=== PATIENT | female | born 1930 ===

== ENCOUNTER 2016-06-30 11:28 | Inpatient (IN) | payer MEDICARE ==
[~2016-06-30] VITALS: Ht 160 cm; Wt 50.9 kg
--- NOTE | ~2016-06-30 | CON ---
PATIENT'S NAME: DIXIE GRIFFIN [facility] AGE: 85 Y [address] ROOM: [place] [address] LOCATION: GICU ADMIT DATE: 06/30/2016 Consultation DISCHARGE DATE: FAMILY PHYSICIAN: PHYSICIAN, UNKNOWN ATTENDING PHYSICIAN: Julien Dupree DATE OF CONSULTATION: 06/30/2016 CHIEF COMPLAINT: Right hydronephrosis and sepsis. HISTORY OF PRESENT ILLNESS: The patient is an 85-year-old female, who was transferred from the outside hospital for further evaluation of acute mental status change, respiratory failure, sepsis, and renal failure. She underwent a CT scan of her abdomen and pelvis earlier this morning with findings including a solitary right kidney with some associated [id number] hydronephrosis and some hydroureter of her proximal and mid ureter. There is no obvious obstructing calculi noted on the CT scan. At that time, Urology was consulted, she was already intubated, and on multiple pressors for hypotension. Her white blood cell count was 5.9 and serum creatinine level was 3.3 here in the ICU. This serum creatinine level was slightly down from 3.8 earlier this morning. Her white blood cell count earlier this morning was 11.1. Her urinalysis earlier this morning was consistent with small bacteria and large leukocyte esterase, but negative nitrites. The family was not aware of her having any history of solitary right kidney. She has no previous history of nephrolithiasis. Prior to the patient becoming septic, she was complaining of some abdominal pain for the last 2 days. The pain apparently is described as a sharp crampy pain. She had apparently denied any fevers or chills. PAST MEDICAL HISTORY: 1. Hypertension. 2. Anxiety. 3. Osteoporosis. PAST SURGICAL HISTORY: 1. Femur surgery. 2. Hernia surgery. 3. Left elbow surgery. 4. Left foot surgery. 5. Tonsillectomy. ALLERGIES: NO KNOWN DRUG ALLERGIES. PATIENT'S NAME: DIXIE GRIFFIN [facility] AGE: 85 Y [address] ROOM: [place] [address] LOCATION: GICU ADMIT DATE: 06/30/2016 Consultation DISCHARGE DATE: FAMILY PHYSICIAN: PHYSICIAN, UNKNOWN ATTENDING PHYSICIAN: Julien Dupree MEDICATIONS: Please see hospitalization medication reconciliation. FAMILY HISTORY: No reported family history of any genitourinary abnormalities. SOCIAL HISTORY: The patient is and lives in [place], [place]. She has no reported history of alcohol, smoking, or drug use. REVIEW OF SYSTEMS: A full 10+ point review of systems was performed with pertinent positive and negative findings included in the history of present illness. All other systems were reviewed and are otherwise negative. PHYSICAL EXAMINATION: VITAL SIGNS: She does have a systolic in the 130s and diastolic in the 40s on pressor support, she is tachycardic with a heart rate in the 120s, respiratory rate at 32, and oxygen saturation is 97% on 40% FiO2. CONSTITUTIONAL: The patient is intubated. HEENT: Extraocular muscles intact. Mucous membranes somewhat dry. No drainage per ears or nose. ABDOMEN: Soft. Nontender. RESPIRATORY: No apparent respiratory distress on ventilator support. MUSCULOSKELETAL: Moves all extremities. NEUROLOGIC: No focal deficits noted. HEMATOLOGIC: No active sites of bruising or bleeding. IMAGING: I personally reviewed her images consistent with findings noted above in the history of present illness. IMPRESSION: 1. Solitary right kidney. 2. Right hydronephrosis. 3. Sepsis. 4. Renal insufficiency. PLAN: I had a long discussion today with the family regarding my findings and given her solitary right kidney in the setting of renal insufficiency and some hydronephrosis, I recommended urgent cystoscopy with placement of indwelling right ureteral stent. There does not appear to be any obvious source of the obstruction, but regardless given her state and overall clinical picture, I do feel it is indicated take her back for stent placement. If we were able to PATIENT'S NAME: DIXIE GRIFFIN [facility] AGE: 85 Y [address] ROOM: [address] [address] LOCATION: [facility] ADMIT DATE: 06/30/2016 Consultation DISCHARGE DATE: FAMILY PHYSICIAN: PHYSICIAN, UNKNOWN ATTENDING PHYSICIAN: Julien Dupree get her through this current infection and get her stable, then at a later date on an outpatient basis we can take a closer look at the ureter including possible retrograde ureteral pyelogram and ureteroscopy to evaluate if there is any obvious intrinsic or extrinsic blockage going on here. The family's questions and concerns were addressed and they did consent for the patient, who is currently in a critical state. They have no further questions at this time. MD PRESTON CASILLAS/brandi /[id number] d: 06/30/16 2348 t: 07/01/16 1550, CONSULTATION REPORT
--- NOTE | ~2016-06-30 | CON ---
PATIENT'S NAME: DIXIE GRIFFIN [facility] AGE: 85 Y [address] ROOM: [id number] [place], [place] [address] LOCATION: GICU ADMIT DATE: 06/30/2016 Consultation DISCHARGE DATE: 06/30/2016 FAMILY PHYSICIAN: PHYSICIAN, UNKNOWN ATTENDING PHYSICIAN: Julien Dupree DATE OF CONSULTATION: 06/30/2016 REFERRING PHYSICIAN: Julien Dupree MD REASON FOR CONSULTATION: BOWEN. HISTORY OF PRESENT ILLNESS: An 85-year-old lady with history of hypertension, anxiety, osteoporosis, and at least 2 prior episodes of BOWEN with abdominal pain, nausea, vomiting, poor p.o. intake over the last month, which got resolved after aggressive IV hydration. Presented to [facility] today with altered mental status, respiratory failure, and shock. The patient was intubated on scene and started on pressors. Meanwhile, a CT scan of the abdomen and pelvis without contrast was done because the patient had multiple episodes of abdominal pain in the recent past. Surprisingly, the CT scan of the abdomen shows only solitary kidney on the right side with significant hydronephrosis and dilation of the urinary collecting system and calluses. 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 Review of her old record shows a creatinine of 0.6-0.8 at baseline in early May, that went up to 4 on presentation today at [place]. The patient got aggressive volume resuscitation over there and after being transferred here and now the creatinine is 3.3. However, the patient remained to be oligoanuric and urine appears to be dark and really cloudy. The patient had no significant leukocytosis, WBC count was 11,000 on presentation and now it is only 5.9 thousand, but has lactate of 7.7 and procalcitonin of 52. The patient is currently on 2 pressors with vasopressin and Levophed. Blood pressure now is in the 130s over 40s with a MAP between 65 and 70. The patient remained intubated while on mechanical ventilator, saturating at 97% to 98% with 40% FiO2 and PEEP of 5. REVIEW OF SYSTEMS: Could not be obtained as the patient is intubated and on mechanical ventilation. PAST MEDICAL HISTORY: Hypertension, anxiety, and osteoporosis. PAST SURGICAL HISTORY: Femur fracture, left elbow surgery, left foot surgery for a broken bone, and tonsillectomy. ALLERGIES: NO KNOWN DRUG ALLERGIES. FAMILY HISTORY: Father had some kind of cancer. Mother with stroke. SOCIAL HISTORY: Lives in [place] with her , had 4 grown up children, has good social support. No history of alcohol, smoking, or drugs.PATIENT'S NAME: DIXIE GRIFFIN [facility] AGE: 85 Y [address] ROOM: [address] [address] LOCATION: [facility] ADMIT DATE: 06/30/2016 Consultation DISCHARGE DATE: 06/30/2016 FAMILY PHYSICIAN: PHYSICIAN, UNKNOWN ATTENDING PHYSICIAN: Julien Dupree CURRENT HOME MEDICATIONS: I am not too sure as the medication reconciliation has not been done yet, but previous records show the patient was on: 1. Diltiazem 120 mg extended release daily. 2. Lorazepam 1 mg 3 times a day. 3. Tylenol with codeine 5 times a day as needed for pain. PHYSICAL EXAMINATION: VITAL SIGNS: Blood pressure 130s over 40s while on 2 pressors, pulse 100 to 110, respiratory rate 32, saturation 97% to 98% on 40% FiO2 and PEEP of 5. GENERAL: Elderly female, intubated on mechanical ventilator. HEAD: Appears to be normocephalic, atraumatic. ET tube in place. NECK: Flat JVD. No significant lymphadenopathy. CHEST: Bilaterally clear to auscultation at least anteriorly. Occasional fine crackles at base. CVS: S1 and S2 positive, regular rate and rhythm, soft systolic murmur in the aortic area. ABDOMEN: Soft, nondistended. Tenderness could not be elicited as the patient is intubated and on mechanical ventilator. EXTREMITIES: Peripheral pulse positive. Peripheral edema is negative. SKIN: Decreased skin turgor. No significant cyanosis, bruising, or clubbing. NEUROLOGIC: Could not be done as the patient is intubated and on mechanical ventilator, but moves all 4 extremities. LABORATORY EVALUATION: WBC 5.9 thousand, hemoglobin 8.7, platelet 159. Serum chemistry, sodium 143, potassium 4, chloride of 111, bicarbonate 13, BUN 35, creatinine 3.3, glucose 89, calcium 6.8, lactate 7.7, procalcitonin 52, PT 15.4, PTT 1.46. ASSESSMENT AND PLAN: 1. Oligoanuric acute kidney injury with possible obstructive etiology in solitary kidney along with some contusion from septic ATN. The patient needs urgent decompression either by retrograde stenting or by percutaneous nephrostomy. I spoke with Dr. Moran, myself, and Dr. Moran will try to do a cystoscopy with retrograde ureteral stenting. I would hold further aggressive IV hydration until we drain that kidney especially in context of solitary kidney. If retrograde ureteral stenting is not successful, then we may need to do a percutaneous nephrostomy as I believe we do not have IR service here today. The patient needs to be transferred out to a higher facility with IR service available today. Once the ureteral stent is placed, we may continue aggressive IV hydration in context of septic shock. 2. Septic shock, possibly secondary to obstructive pyelonephritis in a solitary kidney, urgent drainage either by retrograde ureteric stenting or by percutaneous nephrostomy as mentioned above. 3. Solitary kidney. No history of surgery or nephrectomy in the past, possibly congenital abnormality. 4. Respiratory failure. Intubated currently on mechanical ventilation. Oxygen requirement is stable with 40% FiO2 and PEEP of 5, management as per the primary team.PATIENT'S NAME: DIXIE GRIFFIN [facility] AGE: 85 Y [address] ROOM: [place] [address] LOCATION: [facility] ADMIT DATE: 06/30/2016 Consultation DISCHARGE DATE: 06/30/2016 FAMILY PHYSICIAN: PHYSICIAN, UNKNOWN ATTENDING PHYSICIAN: Julien Dupree 5. Severe metabolic acidosis, possibly secondary to renal failure and sepsis, may need some bicarb infusion, but we wait till we decompress the solitary kidney. Once decompression is done, we can give an isotonic bicarb that is 3 amp of sodium bicarbonate in sterile water, couple of liter bolus followed by 150 mL/hour. Please send a UA, urine lytes including sodium, potassium, creatinine osmolality, and also send urine culture sensitivities. Blood culture already is currently pending. Monitor strict intake and output. Avoid hemodynamic abnormality and keep the MAP more than 65. The patient has been currently started on daptomycin, Zosyn, and Levaquin by the primary team as Zosyn can cause the AIN especially in context of solitary kidney and significant renal impairment. At this point, we would recommend switching to meropenem instead of Zosyn as the chance of AIN is significantly lower with carbapenems; however, we can continue daptomycin and Levaquin, but we will encourage to monitor the CPK as daptomycin can cause rhabdomyolysis. The patient and the patient's family member have been explained about her situation and possible need of renal replacement therapy in near future especially in context of solitary kidney and significant acute kidney injury. However, there is no indication for renal replacement therapy at this point. We will closely monitor the patient's progress along with you. Thank you for allowing me to participate in this patient's care. ABHISEKH SYLVIA PRIETO MD /modl /[id number] d: 06/30/16 2234 t: 07/05/16 1423, CONSULTATION REPORT
--- NOTE | ~2016-06-30 | OR ---
PATIENT'S NAME: DIXIE GRIFFIN [facility] AGE: 85 Y [address] ROOM: [place] [address] LOCATION: GICU ADMIT DATE: 06/30/2016 OR/Procedure Report DISCHARGE DATE: 06/30/2016 FAMILY PHYSICIAN: Physician, Unknown ATTENDING PHYSICIAN: Julien Dupree SURGEON: Isreal Owusu MD AUDIO VISUAL MANAGER: DATE OF PROCEDURE: 06/30/2016 PROCEDURES PERFORMED: 1. Insertion of a central venous catheter. 2. Insertion of an arterial line. INDICATION FOR PROCEDURE: Hemodynamic monitoring access while in the Intensive Care Unit. DESCRIPTION OF PROCEDURE: After a brief time-out was completed verifying the correct patient and the procedure site, the patient was placed in dependent position appropriate for central line placement. The patient's left shoulder was prepped and draped in the usual sterile fashion and 3 mL of 1% lidocaine used to anesthetize the surrounding skin. Using the Seldinger technique, a four-lumen central venous catheter was inserted into the patient's left subclavian vein. The guidewire then was removed. Each lumen of the catheter was evacuated from air and flushed with sterile saline. The catheter then was sutured in place and a sterile Tegaderm was applied. Postoperative chest x- ray confirmed placement of the catheter with no procedural complications. Insertion of an arterial line: The patient's right wrist prepped and draped in usual sterile fashion, 1 mL 1% lidocaine used to anesthetize the surrounding skin. A 20-gauge Arrow catheter was inserted into the patient's right radial artery. The guidewire then was removed. The catheter then was placed on the monitor and a pulsatile waveform did ensue. Catheter then was sutured into place and a sterile Tegaderm was applied. Pulses at the distal insertion of the catheter were checked and found to be adequate. The patient tolerated the procedure well. There were no procedural complications. MD NAIF ASHLEY/brandi /[id number] d: 07/03/162 t: 07/18/16 1414, OPERATIVE SUMMARY
--- NOTE | ~2016-06-30 | HP ---
PATIENT'S NAME: DIXIE GRIFFIN [facility] AGE: 85 Y [address] ROOM: [place] [address] LOCATION: [facility] ADMIT DATE: 06/30/2016 History & Physical DISCHARGE DATE: FAMILY PHYSICIAN: PHYSICIAN, UNKNOWN ATTENDING PHYSICIAN: Julien Dupree DATE OF SERVICE: 06/30/2016 CHIEF COMPLAINT: Acute hypoxic respiratory failure in the setting of severe sepsis with septic shock. HISTORY OF PRESENT ILLNESS: This is an 85-year-old white female with previous history of hypertension and chronic kidney disease, who was transferred to [facility] from [place] with acute hypoxic respiratory failure. She presented to the emergency room in [place] this morning with fever, abdominal pain, and lethargy. She had recently been [facility] with hypokalemia and recurrent acute kidney injury. Prior to that she had been admitted in [place] with acute kidney injury. While she was there, she did have consultation by Nephrology, but I do not have those records for review. Apparently, her symptoms were attributed to gastroenteritis. She was treated conservatively and discharged to home. Following her recent hospital stay, however, she was placed in the [facility] for restorative care. The patient was intubated and sedated on her arrival here and unable to provide any historical information. Family members were not present to provide any other additional features either. After her arrival in the emergency room in [place] today, her clinical condition declined somewhat. She was noted to become progressively more lethargic and hypoxic requiring supplemental oxygen by non-rebreather. Eventually, she was unable to maintain her oxygen saturations and a decision was made to intubate her. Some additional workup including laboratory and CT scan of the abdomen and pelvis were also undertaken. She was noted to have elevated liver function tests as well as an elevated creatinine. Lactate was elevated at 8, and a urinary infection was suspected. It is not clear if blood cultures were drawn there or not. Subsequently, she was transferred via air ambulance here. PAST MEDICAL HISTORY: ALLERGIES: NO KNOWN DRUG ALLERGIES. PATIENT'S NAME: DIXIE GRIFFIN [facility] AGE: 85 Y [address] ROOM: [place] [address] LOCATION: [facility] ADMIT DATE: 06/30/2016 History & Physical DISCHARGE DATE: FAMILY PHYSICIAN: PHYSICIAN, UNKNOWN ATTENDING PHYSICIAN: Julien Dupree ILLNESSES: 1. Hypertension. 2. Chronic kidney disease. 3. Solitary kidney on the right (it is not clear if her left was removed surgically or congenitally absent). 4. Generalized anxiety. 5. Osteoporosis. 6. History of cerebrovascular accident with residual gait instability. CURRENT MEDICATIONS: 1. Lorazepam 1 mg p.o. t.i.d. p.r.n. 2. Tylenol No. 3, 300/15, 1 tablet p.o. t.i.d. p.r.n. pain. 3. Diltiazem 120 mg p.o. q. day. FAMILY HISTORY: Significant for cancer in her father of an unknown type. Mother suffered a stroke. SOCIAL HISTORY: She is and lives in [place]. She has four children and provide some social support. There is no significant history of smoking or alcohol use. REVIEW OF SYSTEMS: As per HPI. All other organ systems reviewed and are negative. PHYSICAL EXAMINATION: VITAL SIGNS: Temperature 36.4 degrees C, pulse 123, respirations 12 (mechanical ventilation), and blood pressure was 93/22 initially, but decreasing en route with MAPs in the 50s. Current blood pressure is 96/51 on Levophed. GENERAL: She is frail, ill-appearing, lying in the bed, sedated on mechanical ventilation. SKIN: Supple and pale. There is diffuse mottling about the trunk and extremities, more noticeable on the right. HEENT: Otherwise, normocephalic. Sclerae nonicteric. Pupils are 5-6 mm, very slow to react to light. Nasal turbinates normal in appearance. Oropharynx clear. Mucous membranes are pink and dry. NECK: Supple. Cachectic. No thyromegaly. She does have JVD in the horizontal position. CHEST: Chest wall is symmetrical. HEART: Tachycardic but regular. LUNGS: Relatively clear. Coarse secondary to mechanical ventilation. No wheezes or crackles are heard. ABDOMEN: Firm, flat, bowel sounds absent. The right abdomen is prominent. I PATIENT'S NAME: DIXIE GRIFFIN [facility] AGE: 85 Y [address] ROOM: [place] [address] LOCATION: [facility] ADMIT DATE: 06/30/2016 History & Physical DISCHARGE DATE: FAMILY PHYSICIAN: PHYSICIAN, UNKNOWN ATTENDING PHYSICIAN: Julien Dupree am able to palpate the right kidney over the flank on that side. No hepatosplenomegaly. AND RECTAL: Shows normal female external genitalia. Sun catheter is in place. EXTREMITIES: Display cachexia. No clubbing or edema, but there is moderate cyanosis. NEUROLOGIC: Sedated on mechanical ventilation. LABORATORY DATA AND IMAGING STUDIES: Laboratory and x-ray data from [place]; CT scan of the abdomen and pelvis demonstrates some bibasilar atelectasis in the lungs, significant right perinephric edema with an enlarged kidney on that side. There was some pelvocaliectasis and mild hydroureter proximally, but no sheba obstruction. No other intra-abdominal abnormalities. There is a left adrenal nodule, but the left kidney is absent. A CBC showed a white blood cell count elevated at 11.1, hemoglobin is 10.6, hematocrit 32.1, and platelets 216,000. Chemistries revealed a BUN and creatinine of 38 and 3.8 respectively. Sodium and potassium 138 and 4.2, chloride and CO2 of 102 and 14.1. Lactate was elevated at 8.7, AST and ALT were 46 and 283, and bilirubin 2.0. Urinalysis grossly concentrated and dark in color, packed field wbc's, and 10-20 rbc's. ABGs revealed a pH of 7.11, pCO2 of 45.7, and pO2 of 102. ASSESSMENT AND PLAN: 1. Severe sepsis with septic shock. Suspect a urinary focus. It is not clear if cultures were obtained in [place]. She did receive IV Levaquin single dose there. We will admit to the intensive care unit. I placed her on the sepsis pathway. Continue with aggressive supportive cares including IV fluids and pressor support. We will augment her antibiotic regimen with Zosyn and daptomycin for now. We will review CT scan findings with Radiology here and consider the need for additional specialty evaluation. 2. Acute hypoxic respiratory failure in the setting of sepsis. Currently, stable. Oxygenating and ventilating adequately with mechanical ventilation. We will request Critical Care assistance for ventilator management by Dr. Owusu. 3. Acute kidney injury with chronic kidney disease, stage 3. As above, there is only limited historical data here. It is not clear if her left kidney is surgically absent. There is no clear evidence for ureteral obstruction, but we will need to review this with Nephrology and Urology. She is presently making better amounts of urine after initial fluid resuscitation. We will follow urine output. 4. Elevated liver transaminases. This could be related to shock. We will follow the enzyme trend. Consider additional imaging with abdominal ultrasound and depending on her progress. 5. Essential hypertension. Hold the antihypertensive regimen and continue PATIENT'S NAME: DIXIE GRIFFIN [facility] AGE: 85 Y [address] ROOM: [address] [address] LOCATION: [facility] ADMIT DATE: 06/30/2016 History & Physical DISCHARGE DATE: FAMILY PHYSICIAN: PHYSICIAN, UNKNOWN ATTENDING PHYSICIAN: Julien Dupree with pressor support. 6. Metabolic acidosis. We will probably initiate some bicarbonate. Continue with fluid resuscitation. We will discuss with Nephrology. 7. Cerebrovascular accident (old) with residual gait instability. Plan; continued supportive cares and clinical monitoring. There does not appear to be any new focalizing deficits, but we will need to re-evaluate this periodically, consider head imaging. 8. Anxiety, generalized. We will hold off on any additional scheduled benzodiazepine therapy. 9. Deep venous thrombosis prophylaxis. We will use low-dose Lovenox while she is inpatient. Total time spent on admission process 60 minutes of which more than 50% was in counseling and coordination of care. MD JOSE L CURRY/brandi /[id number] D: 717 T: 003 HISTORY & PHYSICAL
--- NOTE | ~2016-06-30 | CON ---
PATIENT'S NAME: MILLY GRIFFIN [facility] AGE: 85 Y [address] ROOM: [place] [address] LOCATION: GICU ADMIT DATE: 06/30/2016 Consultation DISCHARGE DATE: 06/30/2016 FAMILY PHYSICIAN: Physician, Unknown ATTENDING PHYSICIAN: Julien Dupree DATE OF CONSULTATION: 06/30/2016 REASON FOR CONSULTATION: Medical management in the Intensive Care Unit. HISTORY OF PRESENT ILLNESS: Mrs. Milly Griffin is an 85-year-old female who presented to [facility] where she was found to have a hypotensive as well as altered mental status and respiratory failure, and appeared to be in shock at the time, was emergently intubated and started on vasopressors and transferred to [facility] for more definitive care. REVIEW OF SYSTEMS: Unable to complete as the patient is currently intubated and sedated. PAST MEDICAL HISTORY: Unable to complete. ALLERGIES TO MEDICATION: No known medical allergies. FAMILY AND SOCIAL HISTORY: Also unable to be completed as the patient is currently intubated and sedated. HOME MEDICATIONS: Unknown at this time. PHYSICAL EXAMINATION: VITAL SIGNS: The patient's temperature of 98.1, blood pressure 90/29, saturating 100% on 100% FiO2. GENERAL: The patient is unresponsive and in acute distress. HEART: Tachycardic. No murmurs, gallops, rubs noted on exam. CHEST: Clear to auscultation bilaterally. No wheezes, rhonchi, or rales. ABDOMEN: Soft, nondistended. She has decreased bowel sounds. HEENT: Her head appears to be normocephalic, atraumatic. Ears, TMs bilaterally were noted. The patient's uvula appears to be midline with an endotracheal tube into place. NECK: Appears to be supple. NEUROLOGICAL: The patient's pupils equally round and reactive to light. Does PATIENT'S NAME: MILLY GRIFFIN [facility] AGE: 85 Y [address] ROOM: [place] [address] LOCATION: GICU ADMIT DATE: 06/30/2016 Consultation DISCHARGE DATE: 06/30/2016 FAMILY PHYSICIAN: Physician, Unknown ATTENDING PHYSICIAN: Julien Dupree not follow commands at this time. Does open her eyes to voice and deep sternal rub. DIAGNOSTIC STUDIES: An ABG shows pH of 7.19, pCO2 of 33, and PO2 of 393. Her bicarb is 12.6, 100% FiO2. Her current measured lactate is 7.7. Her PT, PTT, and INR are 39, 15.4, and 1.46 respectively. Her sodium is 143, potassium 4.0, chloride of 111, her CO2 is 13, BUN of 35, and creatinine of 3.3. Her AST and ALT are 359 and 205, alkaline phosphatase of 147. Her procalcitonin is 51.90. On review of the patient's outside CT results, it appears the patient does have significant amount of a single kidney hydronephrosis. ASSESSMENT: This is an 85-year-old female with, 1. Acute respiratory failure. 2. Severe sepsis with shock. 3. Multiorgan failure. 4. Acute kidney injury on chronic kidney disease. 5. Shock liver with increasing LFTs. 6. Severe lactic acidosis. PLAN: At this time would be to start the patient on an antibiotic regimen as well, and we will add vasopressin to the patient's current regimen of medications as well as hydrocortisone and make the patient's Levophed maximum up to 1 mcg/kilo per minute. We will also emergently place central access as well as arterial lines. I spent a total of 60 minutes of critical care time with this patient, resuscitating the patient who was severely hypotensive and in multiorgan failure. This time did not include this insertion of an arterial line and central venous catheter. MD NAIF ASHLEY/joannal /[id number] d: 07/03/[id number] t: 07/18/16 1411, CONSULTATION REPORT
--- NOTE | ~2016-06-30 | OR ---
PATIENT'S NAME: DIXIE GRIFFIN [facility] AGE: 85 Y [address] ROOM: [place] [address] LOCATION: GICU ADMIT DATE: 06/30/2016 OR/Procedure Report DISCHARGE DATE: FAMILY PHYSICIAN: PHYSICIAN, UNKNOWN ATTENDING PHYSICIAN: Julien Dupree SURGEON: Yordan Cutler MD MANNEQUIN MOUNTER: DATE OF PROCEDURE: 06/30/2016 PREOPERATIVE DIAGNOSES: 1. Solitary right kidney. 2. Right hydronephrosis. 3. Sepsis. 4. Renal insufficiency. POSTOPERATIVE DIAGNOSES: 1. Solitary right kidney. 2. Right hydronephrosis. 3. Sepsis. 4. Renal insufficiency. OPERATIVE PROCEDURE: Cystoscopy with placement of indwelling right ureteral stent. ANESTHESIA: General. INDICATIONS FOR PROCEDURE: The patient is an 85-year-old female who was transferred in from the outside hospital for further evaluation and treatment of acute mental status changes, respiratory failure, sepsis, and renal failure. On evaluation, she had underwent a CT scan with findings including a solitary right kidney with some associated hydronephrosis. The family was explained the risks, benefits, indications, and alternatives to above procedure and wished to proceed and consented freely for the patient who is in a critical state. DESCRIPTION OF OPERATION: The patient brought back to the operating room. She was placed on the OR table in the supine position. A surgical time-out was called, where the patient identification, surgical site, and procedure was then verified. We also did verify that the patient was receiving IV antibiotics. The patient was already intubated when we brought her down from the Intensive Care Unit and then was placed in the dorsal lithotomy position. Her genital area was then prepped and draped in usual sterile fashion. I began by advancing the rigid cystoscope easily into the patient's urinary bladder. Her urethra was within normal limits. Her bladder did have a significant amount of sediment within her bladder. Her bladder did have some PATIENT'S NAME: DIXIE GRIFFIN [facility] AGE: 85 Y [address] ROOM: [place] [address] LOCATION: GICU ADMIT DATE: 06/30/2016 OR/Procedure Report DISCHARGE DATE: FAMILY PHYSICIAN: PHYSICIAN, UNKNOWN ATTENDING PHYSICIAN: Julien Dupree changes consistent with some cystitis including some mild mucosal erythema noted throughout. There was no obvious bladder tumors, cellules, or diverticula. I did not clearly visualize a left ureteral orifice, but I did easily visible visualize her right ureteral orifice. I then used a Sensor guidewire to carefully navigate her right ureteral orifice, which easily passed up her right ureter with no resistance. Then, over the wire, I advanced a 6-English x 22 cm ureteral stent deploying it, noting a good curl fluoroscopically in her right renal pelvis as well as a good curl visually in her bladder. I then emptied her bladder and then placed a 16-English Sun catheter back to gravity drainage. The patient was then taken out of the lithotomy position, where she was then transferred back over to the recovery bed and transported to the Intensive Care Unit in critical condition. The patient did tolerate the procedure well. COMPLICATIONS: None. DRAINS: Indwelling 6-English x 22 cm right ureteral stent. SPECIMENS: None. FOLLOW UP PLAN: The patient will continued to be followed closely in the Intensive Care Unit and ultimately if she recovers well then we will decide on what we will need to do with her right indwelling ureteral stent. We may consider later on an outpatient basis further evaluation with possible right retrograde ureteropyelogram as well as possible diagnostic ureteroscopy versus just taking the stent out and seeing how she does. Again, we will address her followup plan at a later date once she recovers. YORDAN CUTLER MD GP/brandi /[id number] d: 06/30/16 2349 t: 07/01/16 1552, OPERATIVE SUMMARY
[2016-06-30 11:46] LABS: BICARBONATE 12.6 mmol/L (18.0-23.0); PCO2 33 mmHg (35-45); PO2 393 mmHg (80-90)
[2016-06-30 12:05] LABS: BICARBONATE 13.3 mmol/L (18.0-23.0)
[2016-06-30 12:07] LABS: PCO2 42 mmHg (35-45); PO2 106 mmHg (80-90)
[2016-06-30 12:08] LABS: LACTATE 7.7 mEq/L (0.50-1.60)
[2016-06-30 12:12] LABS: INR - (THERAPEUTIC) 1.46 (0.92-1.07); PROTIME 15.4 SECONDS (9.8-11.4)
[2016-06-30 12:36] LABS: CREATININE 3.3 mg/dL (0.5-1.1); TOTAL BILIRUBIN 1.5 mg/dL (0.0-1.5)
[2016-06-30 12:37] LABS: ALBUMIN 1.8 gm/dL (3.5-5.0); CALCIUM 6.8 mg/dL (8.5-10.5); TOTAL PROTEIN 4.5 g/dL (6.0-8.4)
[2016-06-30 13:16] LABS: BICARBONATE 10.8 mmol/L (18.0-23.0)
[2016-06-30 13:17] LABS: PCO2 27 mmHg (35-45); PO2 176 mmHg (80-90)
[2016-06-30 13:51] LABS: HEMATOCRIT 27.4 % (30.0-46.0); HEMOGLOBIN 8.7 g/dL (10.0-15.0); MCHC 31.8 gm/dL (32.0-36.5); MCV 94.5 fl (83.0-98.0); MPV 10.7 fl (9.4-12.4); PLATELET COUNT 159 K/uL (150-450); RDW-CV 15.3 % (11.9-14.6); WBC 5.9 K/uL (4.0-11.0)
[2016-06-30 14:32] LABS: ABSOLUTE NEUTROPHIL CT (ANC) 4.8 K/uL (1.8-7.8); BANDED NEUTROPHIL # 2.8 K/uL (0.0-0.1); BANDED NEUTROPHILS % 48 %; LYMPHOCYTE # 0.7 K/uL (0.8-4.0); LYMPHOCYTE % 12 %; MONOCYTE # 0.1 K/uL (0.0-1.0); SEGMENTED NEUTROPHIL % 33 %
[2016-06-30 15:37] LABS: BILIRUBIN URINE NEGATIVE (NEGATIVE); BLOOD URINE 250 /UL (NEGATIVE); COLOR URINE YELLOW (YELLOW); GLUCOSE URINE NEGATIVE (NEGATIVE); KETONE URINE NEGATIVE (NEGATIVE); LEUKOCYTES URINE 500 /UL (NEGATIVE); NITRITE URINE NEGATIVE (NEGATIVE); PROTEIN URINE 500 mg/dL (NEGATIVE); TURBIDITY URINE 1+ (CLEAR); UROBILINOGEN URINE NORMAL (NORMAL)
[2016-06-30 15:53] LABS: WBC URINE PACKED FIELD #/HPF (NEGATIVE)
[2016-06-30 15:55] LABS: BACTERIA URINE MANY (NEGATIVE); EPITHELIAL URINE RARE #/HPF (NEGATIVE); MUCUS URINE 1+ (NEGATIVE)
--- NOTE | 2016-06-30 16:58 | NUR ---
Significant Event: Patient was admitted to ICU at 1115 from flight from [facility]. She arrived intubed and still a little sedated from tube insertion, but was able to follow some simple commands. Levophed was started in route and continued here. Patient become more hypotensive, so Albumin and Calcium Chloride were given. Vasopressin gtt was started to keep MAP >65. Urine was tea colored and cloudy so it was sent for UA and culutre. It was found that she had Ureteral blockage so she was taken to OR for a stent by Dr. Cutler. Follow up: Continue IV Abx, Monitor BP
[2016-06-30 21:19] LABS: PCO2 26 mmHg (35-45)
[2016-06-30 21:23] LABS: BICARBONATE 14.7 mmol/L (18.0-23.0); PO2 81 mmHg (80-90)
[2016-06-30 21:37] LABS: CREATININE 3.1 mg/dL (0.5-1.1); POTASSIUM 5.5 mMol/L (3.7-5.1); TOTAL BILIRUBIN 1.7 mg/dL (0.0-1.5)
[2016-06-30 21:38] LABS: ALBUMIN 1.9 gm/dL (3.5-5.0); ANION GAP 30.5 (10.0-19.0); CALCIUM 6.9 mg/dL (8.5-10.5); TOTAL PROTEIN 4.1 g/dL (6.0-8.4)
--- NOTE | 2016-07-01 00:26 | NUR ---
Patient at 2230 on 06/30/16. Transported to [facility] [place] at 2340. See long hand notes in chart.
== END 2016-06-30 22:30 | disposition expired | DRG 871 ==
LOC: GICU 11:28
PROVIDERS: Internal Medicine; Internal Medicine Nephrology; ADMIT Family Medicine
PROC: 05H633Z Insertion of Infusion Device into Left Subclavian Vein, Percutaneous Approach (ICD-10-PCS; principal; 2016-06-30)
PROC: 03HY32Z Insertion of Monitoring Device into Upper Artery, Percutaneous Approach (ICD-10-PCS; principal; 2016-06-30)
PROC: 5A1935Z Respiratory Ventilation, Less than 24 Consecutive Hours (ICD-10-PCS; principal; 2016-06-30)
PROC: 3E053XZ Introduction of Vasopressor into Peripheral Artery, Percutaneous Approach (ICD-10-PCS; principal; 2016-06-30)
PROC: 0T768DZ Dilation of Right Ureter with Intraluminal Device, Via Natural or Artificial Opening Endoscopic (ICD-10-PCS; 2016-06-30)
DX: A41.9 Sepsis, unspecified organism (principal); J96.01 Acute respiratory failure with hypoxia; K72.00 Acute and subacute hepatic failure without coma; R65.21 Severe sepsis with septic shock; N17.0 Acute kidney failure with tubular necrosis; E87.2 Acidosis; N13.1 Hydronephrosis with ureteral stricture, not elsewhere classified; I12.9 Hypertensive chronic kidney disease with stage 1 through stage 4 chronic kidney disease, or unspecified chronic kidney disease; N18.3 Chronic kidney disease, stage 3 (moderate); I69.398 Other sequelae of cerebral infarction; M81.0 Age-related osteoporosis without current pathological fracture; Z90.5 Acquired absence of kidney; F41.1 Generalized anxiety disorder; R26.9 Unspecified abnormalities of gait and mobility; Z66 Do not resuscitate
CPT/HCPCS: C1769; C2617; J0610; J0878; J1720; J1956; J2185; J2370; J2543; J3010; J7030; J7040; J7050; J7060; P9045

== ENCOUNTER → 2016-06-30 | Outpatient (CLI) | payer MEDICARE | END | disposition disaster alternative care site (69) | LOC: GAIR 10:44 | DX: R10.9 Unspecified abdominal pain (principal); R50.9 Fever, unspecified | CPT/HCPCS: A0422; A0431; A0436; J7030; J7050 ==